=== PATIENT | male | born 1950 | race Caucasian/White ===

== ENCOUNTER → 2023-10-21 13:37 | Outpatient (REF) | payer MEDICARE, SELFPAY | LOC: HWRAD 13:37 | PROVIDERS: ATTENDING PHYSICIAN Internal Medicine Endocrinology, Diabetes & Metabolism; FAMILY PHYSICIAN Family Medicine | DX: E04.2 Nontoxic multinodular goiter (principal) | CPT/HCPCS: 76536 ==

== ENCOUNTER → 2024-05-24 15:37 | Outpatient (REF) | payer MEDICARE, SELFPAY | LOC: RAD 15:37 | PROVIDERS: ATTENDING PHYSICIAN Physician Assistant Medical; FAMILY PHYSICIAN Family Medicine | DX: R06.02 Shortness of breath (principal) | CPT/HCPCS: 71046 ==

== ENCOUNTER 2024-06-30 14:17 | Emergency (ER) | payer MEDICARE, SELFPAY ==
[2024-06-30 14:21] VITALS: BP 106/73
--- NOTE | 2024-06-30 16:00 | ED.GENMED ---
History of Present Illness
General
Chief Complaint: Cough
Source: patient
Exam Limitations: none
Time Seen by Provider: 06/30/24 15:42
Nursing documentation reviewed up to this point in time: agreed with
History of Present Illness
History of Present Illness:
74-year-old male with a past medical history of hypertension, hyperlipidemia, diabetes, CAD, CHF who presents to the emergency department for evaluation of persistent cough. Patient reports that he has been having nagging cough for the past 2
months or so. He says that last month he had some associated dip in his pulse ox readings at home and had outpatient chest x-ray that was apparently unremarkable. Cough never really resolved, today he had a routine appointment with his primary
doctor (Dr. Wong) and was told that his lungs sound abnormal and was sent to the ER to be evaluated. All he has had persistent cough which is reportedly nonproductive he denies any associated shortness of breath. He denies any chest pain. He
denies any fevers or chills. He has not noticed any swelling in his legs. He has been compliant with his Lasix (takes 20 to 40 mg daily depending on his weight). He denies any recent weight gain. He does admit to continued postnasal drip and
occasional reflux when lying flat at night.
Review of Systems
Review of Systems
All Other Systems: ROS reviewed and negative except as documented in HPI and ROS
Constitutional: Denies fever, weight gain or chills
Respiratory: Reports cough; Denies trouble breathing
Cardiac: Denies chest pain or palpitations
ABD/GI: Denies abdominal pain, nausea or vomiting
: Denies flank pain
Musculoskeletal: Denies edema, neck pain or back pain
Neurological: Denies dizzy or headache
Phy Exam
Physical Exam
Physical Exam:
General: Awake, alert, oriented x3; no acute distress
Head: Normocephalic, atraumatic
Eyes: Conjunctiva normal
Throat: Airway intact, handling secretions
Neck: Trachea midline, supple without meningismus, no JVD noted
Lungs: Patient has normal respiratory rate and normal work of breathing, normal pulse ox on room air; he has scattered expiratory wheeze and some rhonchorous breath sounds particular at the lung bases bilaterally and somewhat worse on the left
Heart: Regular rate and rhythm, no murmurs, gallops, or rubs
Abd: Soft, non distended, nontender
Neuro: No gross deficits
Skin: no rash
Extremities: No edema in extremities, equal pulses in all extremities
Scores
Heart Failure Risk
Heart Failure Risk Score: Not Applicable
Heart Score for Chest Pain Patients
STEMI patient?: Not applicable
Withdrawal Assessment of Alcohol
Withdrawal Assessment Completed?: Not applicable
Course
Orders/Labs/Results
Orders:
Orders
06/30/24 15:43
Electrocardiogram (*1) Urgent
Reason for Study: Shortness of Breath
EKG- Treatment ONCE
CR Chest - 2 Views Urgent
Comment:
Reason For Exam: worsening cough
06/30/24 16:21
COVID-19 Antigen Urgent
Source: Nasal Swab
Complete Blood Count/With Diff Urgent
Comprehensive Metabolic Panel Urgent
NT-proBNP Urgent
Influenza A+B Rapid Molecular Urgent
NASREEN Source: Nasal Swab
Specimen Description:
06/30/24 17:37
Procalcitonin Urgent
PCT Algorithmm Indication: Respiratory
06/30/24 18:58
Furosemide [Lasix] 40 mg IV NOW STA
Abnormal Lab Results
06/30/24
16:21
WBC 11.6 H 10^3/uL
(4.8-10.8)
MPV 10.8 H fL
(7.4-10.4)
Absolute Neuts (auto) 8.8 H 10^3/uL
(1.4-6.5)
Absolute Monos (auto) 1.1 H 10^3/uL
(0.1-0.6)
Neutrophils % 76.3 H %
(42.2-75.2)
Lymphocytes % 10.6 L %
(20.5-51.1)
BUN 33 H mg/dl
(9-20)
Glucose 141 H mg/dl
(70-99)
Total Bilirubin 1.7 H mg/dl
(0.2-1.3)
06/30/24 16:21
06/30/24 16:21
Vital Signs
Initial and Last Documented VS:
Initial Vital Signs
Temp Pulse Resp BP Pulse Ox
36.8 C 96 20 106/73 94
06/30/24 14:21 06/30/24 14:21 06/30/24 14:21 06/30/24 14:21 06/30/24 14:21
Last Documented Vital Signs
Temp Pulse Resp BP Pulse Ox
36.9 C 96 20 97/71 93
06/30/24 17:43 06/30/24 14:21 06/30/24 14:21 06/30/24 17:43 06/30/24 17:43
MDM/Problems Addressed
Differential Diagnosis Includes:
Bronchitis, pneumonia, CHF, pulmonary fibrosis/ILD, allergic rhinitis/postnasal drip, GERD
MDM/Problems Addressed:
74-year-old male presents evaluation of persistent cough for the past month or 2�seen by PCP today and lungs sounded abnormal and referred to the ER for assessment. Vitals and exam as above. Will check labs including a CBC and a CMP, proBNP.
Check EKG. Check chest x-ray. Monitor closely reassess after the above.
Labs reviewed: CBC shows marginal leukocytosis 11.6. CMP no clinically significant abnormalities. proBNP is elevated to 3430. COVID and flu negative. Chest x-ray shows bibasilar airspace disease�read as possible pneumonia. Somewhat lower
suspicion based on timeline. Added procalcitonin.
Procalcitonin negative which I think is strongly against pneumonia; he did have a slight leukocytosis and can cover with a short course of antibiotics in the months of caution given his age. I think more likely that this is some mild CHF. I did
offer admission but patient is adamant he does not want to stay in the hospital. His vitals have been stable he has normal pulse ox and normal respiratory. Reasonable to trial outpatient management. Given a dose of IV Lasix here. Advised to take
double dose of his Lasix for the next few days. I spoke with his primary care physician and they will follow-up with him on Friday for repeat labs and x-ray. Will also refer to cardiology for outpatient follow-up.
Chronic conditions affecting care:
CHF
*Radiology
Radiology exam reviewed: radiology read reviewed
*Pulse Oximetry
Patient hypoxic: no
*Critical Care Note
Total Time (30-74mins, 75-104mins- exclusive of procedures): Not Applicable
Data Reviewed
Source: patient and records
Patient Management
Discussion with other providers: PCP (Discussed directly with primary physician)
Escalation/DeEscalation of care consider admission/obs:
Offered admission but using shared decision making patient ultimately opted for discharge home with outpatient management
ED Attending Note
-
Portions of this chart may have been created with voice recognition software.� Occasional wrong word or��sound alike� substitutions may have occurred due to the inherent limitations of voice recognition software.
Discharge Plan
Departure
Patient Disposition: Home (Routine Discharge)
Date of Disposition: 06/30/24
Time of Disposition: 19:09
Patient with high blood pressure during this ER visit?: No
Discharge Problem:
Cough
Instructions: Cough, Adult (DC), *CBC Heart Failure Instructions
Prescriptions:
New
doxycycline hyclate 100 mg tablet
100 mg PO BID Qty: 14 0RF
No Action
atorvastatin 40 MG tablet
40 mg PO DAILY
melatonin 3 MG tablet
3 mg PO HS
aspirin 81 MG tablet,delayed release (DR/EC)
81 mg PO DAILY
lorazepam 0.5 MG tablet
0.5 mg PO HSPRN PRN (Reason: Anxiety)
glimepiride 4 MG tablet
4 mg PO BID
vitamin B complex 1 TAB tablet
1 tab PO DAILY
jdzzqzic-muz-PK-lycopen-lutein [Centrum Silver] 1 EACH tablet
1 ea PO QPM
coenzyme K75-gisrhct E 1 CAP capsule
1 cap PO DAILY
sitagliptin phosphate [Januvia] 50 MG tablet
50 mg PO DAILY
carvedilol phosphate 20 MG capsule, ER multiphase 24 hr
20 mg PO QPM
potassium citrate [Urocit-K 15] 15 MEQ tablet extended release
15 meq PO BID
turmeric root extract 500 MG capsule
1,500 mg PO DAILY
mxxtzvvjxhc-D4-Ahhzklbot serr [Osteo Bi-Flex (5-Loxin)] 1 EACH tablet
1 ea PO BID
icosapent ethyl [Vascepa] 1 GM capsule
2 gm PO BID
sacubitril-valsartan [Entresto] 1 EACH tablet
1 ea PO BID
cholecalciferol (vitamin D3) 2,000 UNITS tablet
2,000 units PO DAILY
loratadine 10 MG tablet
10 mg PO DAILY
ascorbic acid (vitamin C) [Vitamin C] 500 MG tablet
500 mg PO DAILY
omeprazole magnesium [Prilosec] 10 MG susp,delayed release for recon
5 mg PO QPM
magnesium oxide 400 MG tablet
400 mg PO QPM
metformin 500 MG tablet
500 mg PO QPM Qty: 0 0RF
Rx Instructions:
HOLD post procedure- OK to resume on 02/21 in PM
metformin 1,000 MG tablet
1,000 mg PO DAILY Qty: 0 0RF
Rx Instructions:
HOLD post procedure- OK to resume on Weds 6/23 in AM
Referrals:
Nabor Wong, [Family Provider] - 07/02/24
Marciano Lopez MD [Active] - Call in 1-3 days for appt
Activity Restrictions/Additional Instructions:
You were seen in the emergency room for cough. After your evaluation here we think that your symptoms are related to some mild heart failure. You are given an extra dose of Lasix through the IV here and for the next 5 days you should take your
Lasix at a dose of 40 mg once daily. You are also given a prescription for an antibiotic to take for the next few days in case there is any element of infection causing your cough although based on your workup here, we think this is less likely.
If you feel your symptoms are worsening please return immediately to the emergency room. You should follow-up with your primary doctor this week�we spoke with your primary doctor he indicated that he will see you this Friday. You should also
follow-up with your traffic expert, you should call tomorrow to make an appointment as soon as possible.
Thank you for visiting the Emergency Department at [facility].
1. Please schedule a follow up appointment as directed. Call first thing tomorrow morning to make an appointment.
2. If indicated, please take your medications as instructed and indicated on discharge paperwork.
3. If any of your symptoms do not improve, or persist, or become more severe within 6-12 hours, please return to the emergency department for further care.
4. Please return to the emergency department if you develop a headache, neck pain/stiffness, fever greater than 100.4F, chest pain, shortness of breath, persistent nausea, vomiting, slurred speech, difficulty walking, numbness/tingling, weakness,
signs of infection or any other symptoms that are worrisome to you.
Please call [phone] if you have any questions.
Interventions
Interventions:
*Risk Screen - Suicide Last Done: 06/30/24 17:43
*General Assessment Last Done: 06/30/24 14:21
*Neglect/Abuse Screening Last Done: 06/30/24 17:43
ED- Fall Risk Assessment Last Done: 06/30/24 18:08
*ED COVID-19 Vaccine History Last Done: 06/30/24 17:41
ED- Pulmonary Assessment Last Done: 06/30/24 18:08
Discharge Date and Time
Print Language: OCCITAN
[2024-06-30 16:36] LABS: % Basophils 0.5 % (0-2); % Eosinophils 3.2 % (0-6); % Immature Granulocytes 0.3 % (0-0.5); % Lymphocytes 10.6 % (20.5-51.1); % Monocytes 9.1 % (1.7-9.3); % Neutrophils 76.3 % (42.2-75.2); Absolute Basophils 0.1 10^3/uL (0-0.2); Absolute Eosinophils 0.4 10^3/uL (0-0.7); Absolute Lymphocytes 1.2 10^3/uL (1.2-3.4); Absolute Monocytes 1.1 10^3/uL (0.1-0.6); Absolute Neutrophils 8.8 10^3/uL (1.4-6.5); Hematocrit 46.5 % (39.0-52.0); Mean Corp Hgb Conc. 34.4 g/dL (33.0-37.0); Mean Corpuscular Volume 90.1 fL (80.0-94.0); Mean Platelet Volume 10.8 fL (7.4-10.4); Nucleated Red Blood Cells % 0 % (-); Platelet Count 168 10^3/uL (130-400); Red Blood Cell Count 5.16 10^6/uL (4.70-6.10); Red Cell Dist. Width 13.7 % (11.5-14.5); White Blood Cell Count 11.6 10^3/uL (4.8-10.8)
[2024-06-30 16:47] LABS: ALT (SGPT) 22 U/L (0-50); AST (SGOT) 23 U/L (17-59); Albumin 4.2 g/dl (3.5-5.0); Alkaline Phosphatase 89 U/L (38-126); Blood Urea Nitrogen 33 mg/dl (9-20); Calcium 9.7 mg/dl (8.4-10.2); Carbon Dioxide 24 mmol/L (22-30); Chloride 102 mmol/L (98-107); Glucose 141 mg/dl (70-99); Potassium 5.1 mmol/L (3.5-5.1); Sodium 137 mmol/L (135-145); Total Bilirubin 1.7 mg/dl (0.2-1.3); Total Protein 6.9 g/dl (6.3-8.2); eGFR > 60.00
[2024-06-30 16:56] LABS: NT-proBNP 3430 pg/ml
[2024-06-30 17:13] LABS: COVID-19 Antigen Negative (Negative)
[2024-06-30 17:41] VITALS: BMI 33.6
[2024-06-30 17:43] VITALS: BP 97/71
[2024-06-30 18:21] LABS: Procalcitonin < 0.05 ng/ml (0.0-0.25)
[2024-06-30] MEDS: LASIX 40 MG IV (19:08)
== END 2024-06-30 19:23 | disposition home or self-care (01) ==
LOC: EMR 14:17
PROVIDERS: EMERGENCY PHYSICIAN Emergency Medicine; FAMILY PHYSICIAN Family Medicine
DX: R05.3 Chronic cough (principal); R06.2 Wheezing; Z11.52 Encounter for screening for COVID-19; I11.0 Hypertensive heart disease with heart failure; I50.9 Heart failure, unspecified; E78.5 Hyperlipidemia, unspecified; I25.10 Atherosclerotic heart disease of native coronary artery without angina pectoris; E11.40 Type 2 diabetes mellitus with diabetic neuropathy, unspecified; K21.9 Gastro-esophageal reflux disease without esophagitis; M19.90 Unspecified osteoarthritis, unspecified site; F41.9 Anxiety disorder, unspecified; I25.2 Old myocardial infarction; Z86.73 Personal history of transient ischemic attack (TIA), and cerebral infarction without residual deficits; Z79.82 Long term (current) use of aspirin; Z79.899 Other long term (current) drug therapy; Z79.84 Long term (current) use of oral hypoglycemic drugs; Z88.2 Allergy status to sulfonamides; Z88.8 Allergy status to other drugs, medicaments and biological substances
CPT/HCPCS: 99284; 96374; 71046; 80053; 83880; 84145; 85025; 87502; 87811; 93005

== ENCOUNTER → 2024-07-19 12:28 | Outpatient (REF) | payer MEDICARE, SELFPAY | LOC: RAD 12:28 | PROVIDERS: ATTENDING PHYSICIAN Internal Medicine Endocrinology, Diabetes & Metabolism; FAMILY PHYSICIAN Family Medicine | DX: E04.2 Nontoxic multinodular goiter (principal) | CPT/HCPCS: 76536 ==

== ENCOUNTER → 2024-10-19 14:22 | Outpatient (REF) | payer MEDICARE, SELFPAY | LOC: RAD 14:22 | PROVIDERS: ATTENDING PHYSICIAN Physician Assistant Medical; FAMILY PHYSICIAN Family Medicine | DX: R06.02 Shortness of breath (principal) | CPT/HCPCS: 71046 ==

== ENCOUNTER → 2024-11-26 13:40 | Outpatient (REF) | payer MEDICARE, SELFPAY | LOC: HWRAD 13:40 | PROVIDERS: ATTENDING PHYSICIAN Family Medicine | DX: R93.89 Abnormal findings on diagnostic imaging of other specified body structures (principal) | CPT/HCPCS: 71250 ==

== ENCOUNTER → 2024-12-22 12:37 | Outpatient (REF) | payer MEDICARE, SELFPAY ==
[2024-12-22 13:51] LABS: % Basophils 1.1 % (0-2); % Eosinophils 3.8 % (0-6); % Immature Granulocytes 0.4 % (0-0.5); % Lymphocytes 16.9 % (20.5-51.1); % Monocytes 9.8 % (1.7-9.3); Absolute Basophils 0.1 10^3/uL (0-0.2); Absolute Eosinophils 0.3 10^3/uL (0-0.7); Absolute Lymphocytes 1.3 10^3/uL (1.2-3.4); Absolute Monocytes 0.7 10^3/uL (0.1-0.6); Absolute Neutrophils 5.2 10^3/uL (1.4-6.5); Hematocrit 45.9 % (39.0-52.0); Hemoglobin 14.9 g/dL (13.0-18.0); Mean Corp Hgb Conc. 32.5 g/dL (33.0-37.0); Mean Corpuscular Hgb 28.3 pg (27.0-31.0); Mean Corpuscular Volume 87.3 fL (80.0-94.0); Mean Platelet Volume 10.6 fL (7.4-10.4); Nucleated Red Blood Cells % 0 % (-); Platelet Count 191 10^3/uL (130-400); Red Blood Cell Count 5.26 10^6/uL (4.70-6.10); Red Cell Dist. Width 17.3 % (11.5-14.5); White Blood Cell Count 7.6 10^3/uL (4.8-10.8)
[2024-12-22 14:18] LABS: ALT (SGPT) 26 U/L (0-50); AST (SGOT) 24 U/L (17-59); Albumin 3.8 g/dl (3.5-5.0); Alkaline Phosphatase 148 U/L (38-126); Blood Urea Nitrogen 36 mg/dl (9-20); Calcium 9.6 mg/dl (8.4-10.2); Carbon Dioxide 29 mmol/L (22-30); Chloride 100 mmol/L (98-107); Glucose 196 mg/dl (70-99); Magnesium 2.3 mg/dl (1.6-2.3); Sodium 139 mmol/L (135-145); Total Bilirubin 1.2 mg/dl (0.2-1.3); Total Protein 6.9 g/dl (6.3-8.2); eGFR > 60.00
== END ==
LOC: SDSPAT 12:37
PROVIDERS: ATTENDING PHYSICIAN Student in an Organized Health Care Education/Training Program; FAMILY PHYSICIAN Family Medicine
DX: I50.20 Unspecified systolic (congestive) heart failure (principal); I25.5 Ischemic cardiomyopathy
CPT/HCPCS: 36415; 80053; 83735; 85025; 93005

== ENCOUNTER 2024-12-24 07:23 | Day surgery (SDC) | payer MEDICARE, SELFPAY ==
[2024-12-22 12:56] VITALS: BMI 34.2
[2024-12-24] VITALS (13 sets, daily range): BP systolic 80–103; BP diastolic 44–69
[2024-12-24 08:38] LABS: Glucose - Point of Care 170 mg/dl (70-99)
[2024-12-24 10:40] LABS: ACT-LR - POC 294 Seconds (116-155)
--- NOTE | 2024-12-24 11:55 | ITS.CL.PN ---
Aeronautical Engineer - Procedure Note
Procedure
Procedure Note:
CARDIAC CATHETERIZATION REPORT
Date of Procedure:
Referring: Dr. Yeyo Zeng MD, PhD
Indication: Ventricular tachycardia
PROCEDURE(S)
1. left heart catheterization
2. coronary angiography
3. IVUS LAD
4. PCI with MESFIN to LAD
ACCESS:
1. 6F right radial artery (abandoned due to extreme subclavian tortuosity and inability to manipulate catheters even after placing 90 cm 6F sheath; closure: radial band)
2. 6F right common femoral artery (closure: Angioseal x1)
CATHETERS
1. 6F JR4
2. 6F JL4
3. EBU3.75 guide
MODERATE SEDATION: 60 minutes of moderate sedation was utilized. An [facility] sales was present to assist with and help manage the patient's level of consciousness and physiologic status.
HEMODYNAMIC DATA
LV 91/13 (EDP 22) mmHg
AO 96/66 (mean 77) mmHg
CORONARY ANGIOGRAPHY
Dominance: Right
LM: Large without disease
LAD: Large vessel giving rise to a small D1, moderate caliber D2, and wrapping around the apex. There is a focal 90% stenosis between D1 and D2 and a short tubular 50% stenosis in the distal vessel.
Ramus: Large bifurcating vessel with a focal 50% ostial stenosis.
LCx: large vessel giving rise to a small OM1 and large OM2. There is slow flow in the vessel but no obstructive coronary artery disease.
RCA: Large vessel giving rise to a medium caliber RPDA, small RPL1, small RPL2, and small RPL 3. There is diffuse mild disease.
IVUS guided PCI with MESFIN to LAD
The decision was made to revascularize the 90% mid LAD lesion. Heparin was given to achieve ACT greater than 300. The left main was engaged with a EBU 3.75 guide catheter and a Runthrough wire placed in the distal LAD. Initial lesion preparation was
performed with a 2.5 semicompliant balloon followed by IVUS demonstrating a 3.75 mm reference vessel diameter with moderate but non-concentric calcification. A 3.5 mm noncompliant balloon was inflated with full expansion in orthogonal projections. A
3.5 x 15 drug-eluting stent was deployed at 16 jaylon followed by post dilation with a 3.75 x 12 NC to the proximal stent edge. Final IVUS demonstrated full stent expansion and apposition with no edge dissections. Final angiography demonstrated an
excellent result. The wire and guide were removed and the groin closed with Angio-Seal x 1. The patient was given 600 mg of Plavix on the table and taken to recovery.
RADIATION: dose 1069 mGy; DAP 99.1 Gy*cm2; fluoroscopy time 14.9 min
CONCLUSIONS
1. Single-vessel obstructive coronary artery disease in the setting of recent VT shock.
2. Successful IVUS guided PCI to the mid LAD with 3.5 x 15 mm [place] drug-eluting stent.
RECOMMENDATIONS
1. Triple therapy with aspirin, Plavix, and Eliquis for 1 week followed by Plavix and Eliquis only for 12 months, and finally Eliquis monotherapy after 12 months.
2. Aggressive secondary prevention of coronary artery disease
3. Echo as outpatient and titration of GDMT
4. If patient has further ICD shocks or significant NSVT will need to consider antiarrhythmic drug titration.
Copy to: Renan Zeng MD, PhD (snowmobile mechanic); Nabor Wong DO (PCP)
Signed: Yeyo Samuels MD, PhD
--- NOTE | 2024-12-24 15:32 | W.PN.UPDATE ---
Update Note
Progress Note Update
74yo WM s/p PCI LAD (Same day). He denies cp, sob, nicho diet, voiding, amb w/o dizziness, EKG Vpaced with PVC's, R rad site c/d/i no HT. He will be on DAPT ASA/Plavix for 1 week with Eliquis then stop ASA. Hold Metformin 48 hrs post cath. Cardiac
rehab c/s. He will f/u Dr. Samuels in 2 weeks. He is for d/c home after 4pm.
== END 2024-12-24 16:05 | disposition home or self-care (01) ==
LOC: CATH 07:23
PROVIDERS: ATTENDING PHYSICIAN Student in an Organized Health Care Education/Training Program; FAMILY PHYSICIAN Family Medicine
DX: I25.10 Atherosclerotic heart disease of native coronary artery without angina pectoris (principal); I50.22 Chronic systolic (congestive) heart failure; I11.0 Hypertensive heart disease with heart failure; I25.5 Ischemic cardiomyopathy; I47.20 Ventricular tachycardia, unspecified; E78.5 Hyperlipidemia, unspecified; I48.0 Paroxysmal atrial fibrillation; I49.3 Ventricular premature depolarization; I08.0 Rheumatic disorders of both mitral and aortic valves; J84.10 Pulmonary fibrosis, unspecified; Z79.84 Long term (current) use of oral hypoglycemic drugs; E11.42 Type 2 diabetes mellitus with diabetic polyneuropathy; K21.9 Gastro-esophageal reflux disease without esophagitis; Z86.0100 Personal history of colon polyps, unspecified; K57.90 Diverticulosis of intestine, part unspecified, without perforation or abscess without bleeding; Z86.73 Personal history of transient ischemic attack (TIA), and cerebral infarction without residual deficits; B35.6 Tinea cruris; J32.9 Chronic sinusitis, unspecified; E66.9 Obesity, unspecified; Z68.34 Body mass index [BMI] 34.0-34.9, adult; F41.9 Anxiety disorder, unspecified; G47.00 Insomnia, unspecified; Z95.810 Presence of automatic (implantable) cardiac defibrillator
CPT/HCPCS: 92978; 99152; 99153; 82962; 85347; 93005; 93458; C1725; C1753; C1760; C1874; C1894; C9600; Q9967

== ENCOUNTER → 2025-01-07 12:54 | Outpatient (REF) | payer MEDICARE, SELFPAY | LOC: RCS 12:54 | PROVIDERS: ATTENDING PHYSICIAN Student in an Organized Health Care Education/Training Program; FAMILY PHYSICIAN Family Medicine | DX: I35.0 Nonrheumatic aortic (valve) stenosis (principal) | CPT/HCPCS: 93306 ==

== ENCOUNTER → 2025-04-14 13:49 | Outpatient (REF) | payer MEDICARE, SELFPAY | LOC: RCS 13:49 | PROVIDERS: ATTENDING PHYSICIAN Student in an Organized Health Care Education/Training Program; FAMILY PHYSICIAN Family Medicine | DX: I50.20 Unspecified systolic (congestive) heart failure (principal); I25.5 Ischemic cardiomyopathy | CPT/HCPCS: 93306 ==

== ENCOUNTER → 2025-04-21 13:13 | Outpatient (REF) | payer MEDICARE, SELFPAY ==
[2025-04-21 13:49] LABS: Hematocrit 48.1 % (39.0-52.0); Hemoglobin 16.1 g/dL (13.0-18.0); Mean Corp Hgb Conc. 33.5 g/dL (33.0-37.0); Mean Corpuscular Volume 86.8 fL (80.0-94.0); Nucleated Red Blood Cells % 0 % (-); Platelet Count 240 10^3/uL (130-400); Red Cell Dist. Width 17.5 % (11.5-14.5)
[2025-04-21 14:05] LABS: ALT (SGPT) 19 U/L (0-50); AST (SGOT) 19 U/L (17-59); Albumin 4.4 g/dl (3.5-5.0); Alkaline Phosphatase 131 U/L (38-126); Blood Urea Nitrogen 32 mg/dl (9-20); Calcium 9.7 mg/dl (8.4-10.2); Carbon Dioxide 26 mmol/L (22-30); Chloride 100 mmol/L (98-107); Glucose 201 mg/dl (70-99); Potassium 4.4 mmol/L (3.5-5.1); Sodium 137 mmol/L (135-145); Total Protein 7.8 g/dl (6.3-8.2); eGFR > 60.00
== END ==
LOC: SDSPAT 13:13
PROVIDERS: ATTENDING PHYSICIAN Internal Medicine Cardiovascular Disease; FAMILY PHYSICIAN Family Medicine; OTHER PHYSICIAN Student in an Organized Health Care Education/Training Program
DX: I25.5 Ischemic cardiomyopathy (principal)
CPT/HCPCS: 36415; 80053; 85025; 93005

== ENCOUNTER 2025-04-29 07:56 | Day surgery (SDC) | payer MEDICARE, SELFPAY ==
--- NOTE | 2025-04-21 13:08 | HPS.HSE ---
Family Physician
<Anisha Hui PA-C - Last Filed: 04/22/25 11:26>
-
Family Physician: NO INTERVIEW UNKNOWN
<Artemio Waters MD - Last Filed: 04/22/25 12:46>
-
Family Physician: UNKNOWN
Chief Complaint
<Anisha Hui PA-C - Last Filed: 04/22/25 11:26>
-
Congestive heart failure, reduced ejection fraction. Ischemic cardiomyopathy. Presence of ICD.
History of Present Illness
The patient is a 74-year-old male presenting today with a history of congestive heart failure and ischemic cardiomyopathy. He is compliant with current guideline directed medical therapy in the form of Coreg, Entresto, and Jardiance.
Spironolactone was initially taken; however, this was discontinued recently due to low blood pressure readings with associated dizziness. He previously underwent a Medtronic dual-chamber ICD implant in January 2021 secondary to these diagnoses. A
device interrogation in November 2024 revealed an episode of ventricular tachycardia on December 18, 2024 with a successful 36 j shock. The patient stated he was sitting in a chair and felt like he was being pushed back. After the shock, he reportedly
felt fine. He proceeded with a left cardiac catheterization on 12/24/2024 for further evaluation. His cath revealed obstructive single vessel coronary artery disease for which he had a drug-eluting stent placed in his mid LAD. He was initially
started on triple therapy with Aspirin, Plavix, and Eliquis for 1 week followed by Plavix and Eliquis for the next year. A recent echocardiogram on 04/14/2025 demonstrated an ejection fraction of 30-35%. His ejection fraction, unfortunately, has not
improved despite optimal guideline directed medical therapy and recent revascularization. It is recommended he proceed with an upgrade to a biventricular ICD implant at this time. He denies any current complaints today such as chest pain,
palpitations, nausea, vomiting, diarrhea, lightheadedness, sore throat, or fever. He does report a dry cough today which is due to chronic post-nasal drip.
Medical History
<Anisha Hui PA-C - Last Filed: 04/22/25 11:26>
Past Medical History
Past Medical History: Reports Other
Additional Past Medical History:
1. Congestive heart failure, reduced ejection fraction, status post Medtronic dual-chamber ICD implant 01/2021.
2. Ischemic cardiomyopathy.
3. Ventricular tachycardia in the setting of obstructive, single vessel coronary artery disease, status post PCI with drug-eluting stent to mid LAD 11/2024.
4. Hypertension.
5. Hyperlipidemia.
6. Paroxysmal atrial fibrillation, pharmacological therapy with Carvedilol, oral anticoagulation with Eliquis.
7. PVCs.
8. Mildly dilated aortic root and ascending aorta.
9. Moderate to severe mitral valve regurgitation.
10. Moderate tricuspid regurgitation with severe pulmonary hypertension.
11. Mild interstitial fibrosis on chest CT 10/2024.
12. Obstructive sleep apnea, improved with weight loss.
13. Chronic dyspnea on exertion.
14. Non insulin-dependent diabetes.
15. GERD.
16. Colon polyps.
17. Diverticulosis.
18. Nephrolithiasis.
19. TIA, 2020, without residual deficits.
20. Balance difficulties and ambulatory dysfunction.
21. Peripheral neuropathy.
22. History of L1 fracture.
23. Osteoarthritis.
24. Left rotator cuff arthropathy, undergoing physical therapy.
25. Thyroid nodules.
26. Chronic postnasal drip with cough.
27. Anxiety.
28. Insomnia.
29. Obesity, BMI 33.5.
Past Surgical History: Reports Other
Additional Past Surgical History:
1. Medtronic dual-chamber ICD implantation.
2. PCI with drug-eluting stent to mid LAD.
3. Cardiac catheterization.
4. Right ureteroscopy with laser lithotripsy.
5. Colonoscopy x2.
Social History
Tobacco: Non-smoker
Alcohol: None
Living: Other (The patient lives in a two-story home with a finished basement. He currently resides with his spouse.)
Family History
Family History: Not pertinent
Allergies / Home Medications
Allergy/Medication List:
MEDICATIONS:
1. Acetaminophen 500 mg p.o. every 6 hours as needed.
2. Apixaban 5 mg p.o. twice a day.
3. Ascorbic acid 1000 mg p.o. daily.
4. Atorvastatin 40 mg p.o. daily.
5. Carvedilol 12.5 mg p.o. twice a day.
6. Clopidogrel 75 mg p.o. daily.
7. Multivitamin 1 tablet p.o. daily.
8. Cetirizine 10 mg p.o. daily.
9. Omeprazole 5 mg p.o. every evening.
10. Co Q10 100 mg p.o. daily.
11. Jardiance 10 mg p.o. daily.
12. Furosemide 40 mg p.o. daily.
13. Furosemide 20 mg p.o. daily as needed.
13. Glimepiride 4 mg p.o. twice a day.
14. Vascepa 2 gm p.o. twice a day.
15. Januvia 50 mg p.o. daily.
16. Lorazepam 0.5 mg p.o. at bedtime.
17. Magnesium 200 mg p.o. daily.
18. Metformin 500 mg p.o. every evening.
19. Metformin 1000 mg p.o. daily.
20. Naproxen sodium 220 mg p.o. daily as needed.
21. Urocit 30 mEq p.o. daily.
22. Entresto 49-51 mg p.o. twice a day.
23. Vitamin B complex one tablet p.o. daily.
ALLERGIES: Sulfa. Unknown diabetic medication.
Review of Systems
<Anisha Hui PA-C - Last Filed: 04/22/25 11:26>
-
A 12 point ROS was completed and negative except as noted: Yes
Physical Exam
<Anisha Hui PA-C - Last Filed: 04/22/25 11:26>
Vital Signs
Blood pressure 107/69. Heart rate 77. Respirations 18. Pulse ox 95% on room air.
Height 5 feet, 2 inches. Weight 83 kg. BMI 33.5.
Physical Exam
General: Well Developed, Well Nourished and No Apparent Distress
HEENT: NormoCephalic, Moist mucous membranes, Atraumatic and PERRLA
Respiratory: Clear
Cardiac: Regular Rhythm
GI: Soft, Non Tender, Non Distended and Other (Obese. )
Musculoskeletal: No Edema and Other (Patient ambulates with a single point cane. Restricted ROM of left shoulder secondary to rotator cuff arthropathy. )
Skin: Warm and Dry
Neuro: AO x 3 and Nonfocal/grossly intact
Laboratory Results
<Anisha Hui PA-C - Last Filed: 04/22/25 11:26>
-
DIAGNOSTIC STUDIES as of 04/21/2025: White blood cell count 8.7. Hemoglobin 16.1. Platelet count 240,000. Sodium 137. Potassium 4.4. BUN 32. Creatinine 1.1. Glucose 201. Calcium 9.7. AST 19. ALT 19. Albumin 4.4.
EKG 04/21/2025: Sinus rhythm with marked sinus arrhythmia and first degree AV block. Left axis deviation. Left ventricular hypertrophy. ST and marked T wave abnormality, consider anterolateral ischemia.
Echocardiogram 04/14/2025: Dilated left ventricle with moderately reduced systolic function. Global hypokinesis. Ejection fraction is 30-35% by visual assessment. Dilated right ventricle with preserved systolic function. Stage II diastolic
dysfunction suggestive of abnormal relaxation and increased filling pressures. Moderate to severe mitral valve regurgitation. Moderate tricuspid regurgitation with severe pulmonary hypertension. Compared to the prior echocardiogram on 01/07/2025,
the mitral regurgitation is now moderate to severe from moderate.
Impression/Plan
<Anisha Hui PA-C - Last Filed: 04/22/25 11:26>
-
IMPRESSION/PLAN:
1. Congestive heart failure, reduced ejection fraction, ischemic cardiomyopathy, and presence of ICD: The patient is in need of an upgrade to a biventricular ICD with Dr. Artemio Waters on 04/29/2025. The benefits and risks of the procedure have been
explained to the patient. The patient understands these risks and wishes to proceed. He has been advised to hold his Eliquis the night before and morning of his procedure. He will hold Jardiance starting 04/26/2025. He will not take Furosemide or
any of his diabetic medications the morning of his procedure.
[2025-04-21 13:22] VITALS: BMI 33.5
[2025-04-29] VITALS (22 sets, daily range): BP systolic 83–110; BP diastolic 40–76; BMI 32.4
[2025-04-29 08:43] LABS: Glucose - Point of Care 157 mg/dl (70-99)
--- NOTE | 2025-04-29 09:38 | W.ICD.CONTRA ---
Post ICD/VP PUBLIC RELATIONS-D
-
History of OK?: Yes
LV Function
Left ventricular function study result?: Ejection Fraction </= 35%
ACEI/ARB/ARNI
Patient already on ACEI/ARB/ARNI: Yes
Beta-Radha
Patient already on Beta Rahda: Yes
[2025-04-29 13:06] LABS: Glucose - Point of Care 150 mg/dl (70-99)
[2025-04-29] MEDS: LASIX 40 MG PO (13:48)
--- NOTE | 2025-04-29 14:12 | ITS.CL.ICD ---
Lathe Tender - ICD
Implantable Cardioverter Defibrillator
Procedure Report:
Date of Procedure: April 29, 2025.
Procedures: Upgrade from a dual chamber ICD to a Bi-Ventricular ICD.
Indication:�The patient has progressive second degree AV block and is pacing from the ICD in the RV more than 40% of the time. Progressive RV pacing has been associated with worsening of LVEF and heart failure. Secondary prevention ICD. His ICD
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 NYHA heart failure class 3 for more than 9 months. LVEF 30-35%. Paced QRS duration of 218 ms with a LBBB morphology. Ischemic cardiomyopathy with a history of prior OH. Life expectancy is more than 1
year. Known paroxysmal atrial fibrillation.
Shared decision making: Dr. Samuels discussed upgrading with the patient and reviewed the expected benefits, risks, and alternatives. After discussing with Dr. Samuels the patient decided to proceed.
Performing physician: Artemio Waters MD, [facility].
Today's Implants:�
Pulse Generator: Medtronic; Model# [id number]; Serial# [id number].�
Left Ventricular Lead: Medtronic; Model# 4798-88cm; Serial# [id number].�
Retained Atrial Lead: Medtronic; Model# 5076-52 cm; Serial# [id number] (implanted February 19, 2021).
Retained Right Ventricular ICD Lead: Medtronic; Model# 4474G12; Serial# [id number] (implanted February 19, 2021).
Explanted ICD Pulse Generator: Medtronic; Model# [id number]; Serial# [id number] (implanted February 19, 2021).
Technique: A time out was performed. A 10 mL upper extremity venogram demonstrated patent left axillary and subclavian veins. The procedure site was identified. The patient was anesthetized by the anesthesia service. Preoperative cefazolin was
administered. The patient was prepped and draped in the usual fashion. Local anesthetic was applied to the left prepectoral subcutaneous tissue. The left axillary vein was accessed with a single percutaneous micro-puncture without difficulty.� A 3
inch incision was made along the left deltopectoral groove. Dissection was carried to the fascia. The 035 wire was tunneled to the pocket. Dissection was carried to the capsule. The old pulse generator was brought to the surface. The new LV lead was
introduced with a 9 Fr hemostatic peel away introducer sheath. The coronary sinus was accessed with the aid of the [employer] Sure Valve 6250VC system with an extended hook sheath within 1 minute without difficulty. Coronary sinus venography
revealed a medium to large large caliber lateral vein and a medium sized anterolateral or high lateral vein. The left ventricular lead was placed in the lateral vein but pacing thresholds were high in the mid and basal locations and I did not want
to except a very apical location. The LV lead was moved to the anterior lateral vein where the lead was able to be advanced fully with the tip terminating in a basal to mid location.�The LV lead was fairly deep into the vein but active fixation was
achieved. The delivery sheath was split and removed and then�the LV lead was secured to the pectoralis muscle and fascia with 0-silk suture. 8 volt pacing did not capture the diaphragm. Hemostasis was excellent. The old pulse generator was
discarded. The leads were appropriately attached to the new device. The pocket was irrigated with antibiotic solution. A [employer], TYRX Absorbable Antibacterial Envelope was placed in the pocket. The device and leads were placed in the pocket.�The
incision was closed in three layers with absorbable suture. Steri-strips and a a silver impregnated dressing were placed. Estimated blood loss 15 ml.� There were no complications. Fluoroscopy time: 6.4 minutes and DAP 4.65abowks GyCM2. The device
was then interrogated after skin closure.
System Analysis:
RA lead: P: 3.8 mV; Threshold: 1.25 V @ 0.4 ms; Impedance: 475 ohms.
RV lead: R: 5.8 mV; Threshold: 0.5 V @ 0.4 ms; Impedance: 343 ohms. HVB 65 ohms
LV lead: R: 21 mV; Threshold: 0.75 V @ 0.4 ms; Impedance: 655 ohms.
[employer] showed multiple acceptable configurations for the LV lead. Electrical separation of over 170 ms was chosen with minimal impact on longevity.
Final Programming: Tachy: VT/VF:188 bpm; Mendez: DDDR 60-120 bpm.
Conclusion: Uncomplicated upgrade from a dual chamber ICD to a Bi-Ventricular.� The�ICD system is MRI safe/conditional.
Recommendation: Routine post ICD care.
cc: Yeyo Samuels MD and Nabor Wong DO.
--- NOTE | 2025-04-29 16:03 | W.PN.UPDATE ---
Update Note
Progress Note Update
Pt seen post Bi-V ICD upgrade. Left ACW w/aquacel dressing CDI. Post CXR w/stable lead position, no pneumothorax. Post EKG VPaced w/PVCs, bigemeny. Some congestion and hypoxia post procedure- OOB and given daily dose po lasix with modest relief. Pt
is asymptomatic and feels fine, no dyspnea or cough. Instructed to take lasix 60mg daily for 3 days, then resume prior dosing instructions, and get BMP early next week.
Activity limitations reviewed w/pt. Hold eliquis post procedure until Sun 05/01 in PM, hold metformin 48h post procedure. Resme all other meds as before. Incision check next week at [facility], followup with Dr. Samuels thereafter. Home later today after
antibiotics given.
[2025-04-29] MEDS: ANCEF 5 IV (16:31)
== END 2025-04-29 17:20 | disposition home or self-care (01) ==
LOC: CATH 07:56
PROVIDERS: ATTENDING PHYSICIAN Internal Medicine Cardiovascular Disease; FAMILY PHYSICIAN Family Medicine; OTHER PHYSICIAN Student in an Organized Health Care Education/Training Program
DX: Z45.02 Encounter for adjustment and management of automatic implantable cardiac defibrillator (principal); I11.0 Hypertensive heart disease with heart failure; I50.22 Chronic systolic (congestive) heart failure; I25.5 Ischemic cardiomyopathy; E11.42 Type 2 diabetes mellitus with diabetic polyneuropathy; E66.9 Obesity, unspecified; E78.5 Hyperlipidemia, unspecified; F41.9 Anxiety disorder, unspecified; G47.33 Obstructive sleep apnea (adult) (pediatric); I08.1 Rheumatic disorders of both mitral and tricuspid valves; I25.10 Atherosclerotic heart disease of native coronary artery without angina pectoris; I25.2 Old myocardial infarction; I27.20 Pulmonary hypertension, unspecified; I44.1 Atrioventricular block, second degree; I48.0 Paroxysmal atrial fibrillation; I49.3 Ventricular premature depolarization; R06.09 Other forms of dyspnea; K21.9 Gastro-esophageal reflux disease without esophagitis; Z86.0100 Personal history of colon polyps, unspecified; Z87.442 Personal history of urinary calculi; Z86.73 Personal history of transient ischemic attack (TIA), and cerebral infarction without residual deficits; M19.90 Unspecified osteoarthritis, unspecified site; E04.1 Nontoxic single thyroid nodule; R05.9 Cough, unspecified; R09.82 Postnasal drip; I44.7 Left bundle-branch block, unspecified; I49.1 Atrial premature depolarization; R57.9 Shock, unspecified; Z79.899 Other long term (current) drug therapy; Z68.33 Body mass index [BMI] 33.0-33.9, adult; Z79.01 Long term (current) use of anticoagulants; Z79.84 Long term (current) use of oral hypoglycemic drugs; Z88.2 Allergy status to sulfonamides; Z95.5 Presence of coronary angioplasty implant and graft; Z79.02 Long term (current) use of antithrombotics/antiplatelets
CPT/HCPCS: 33264; 33225; 71045; 82962; 93005; C1769; C1882; C1887; C1892; C1900; C2621

== ENCOUNTER → 2025-08-03 13:38 | Outpatient (REF) | payer MEDICARE, SELFPAY | LOC: HWRCS 13:38 | PROVIDERS: ATTENDING PHYSICIAN Student in an Organized Health Care Education/Training Program; FAMILY PHYSICIAN Family Medicine | DX: I50.20 Unspecified systolic (congestive) heart failure (principal) | CPT/HCPCS: 93306 ==